=== PATIENT | male | born 1985 | race Caucasian/White ===

== ENCOUNTER 2022-03-08 16:10 | Emergency (ER) | payer OTHER, SELFPAY ==
[2022-03-08 16:35] VITALS: BP 128/84; PULSE 57; RESP 19; TEMP 36.2; O2SAT 100; BMI 28.0
[2022-03-08 18:04] LABS: Add Manual Diff / Slide Review NO; Basophils Absolute Auto 0 /uL (0-100); Eosinophils Absolute Auto 100 /uL (0-450); Eosinophils Percent Auto 1.9 % (2-4); Hematocrit 41.8 % (41-53); Hemoglobin 14.8 g/dL (13.5-17.5); Lymphocytes Absolute Auto 1500 /uL (1100-4500); Lymphocytes Percent Auto 31.2 % (25-40); Mean Corpuscular HGB Conc 35.3 % (30-36); Mean Corpuscular Hemoglobin 30.7 PG (26-34); Mean Corpuscular Volume 86.9 fL (80-100); Monocytes Absolute Auto 400 /uL (0-900); Neutrophils Absolute Auto 2800 /uL (1500-7000); Neutrophils Percent Auto 57.9 % (50-75); Platelet Count 205 X10^3/uL (150-400); Red Cell Distribution Width 13.7 % (11.6-14.8); White Blood Cell Count 4.8 X10^3/uL (4.5-11.0)
--- NOTE | 2022-03-08 18:17 | DI.CT.S_ITS ---
PROCEDURE: CT KIDNEY URETER BLADDER (KUB) INDICATIONS: left flank pain, dark urine, c/f nephrolithiasis TECHNIQUE: Axial sections were acquired from the lung bases to the pubic symphysis. Coronal and sagittal reformats were performed. For radiation dose reduction, the following was used: automated exposure control, adjustment of mA and/or kV according to patient size. COMPARISON: None. FINDINGS: Lower thorax: The lung bases are clear. Heart size normal. No hiatal hernia. Liver: Normal in size and attenuation. No contour deformity present. Biliary system: No calcified cholelithiasis or pericholecystic inflammation. No intra or extrahepatic bile duct dilatation. Pancreas: Unremarkable without mass or inflammation evident. Spleen: Normal in size and density. Adrenals: Normal morphology and density. Reproductive system: Unremarkable as visualized. Urinary system: Normal renal size and attenuation. No renal calculi, hydronephrosis, or solid mass present. Urinary bladder unremarkable. Gastrointestinal system: The bowel is unremarkable without evidence of bowel obstruction or inflammation. The stomach appears unremarkable. Appendix: No findings to suggest acute appendicitis. Peritoneal spaces: No mesenteric or retroperitoneal adenopathy. No free air. No free fluid. Vasculature: The IVC, aorta and iliac vasculature are unremarkable. Abdominal wall: Abdominal wall intact without evidence of ventral or inguinal hernias. Musculoskeletal: Normal bone mineralization. No acute fractures. IMPRESSION: 1. Normal noncontrast CT abdomen pelvis. No evidence of renal calculi, hydronephrosis or obstructive uropathy. Approved by: Cristobal Peñaloza M.D. on 03/08/2022 at 17:59
[2022-03-08 18:19] LABS: Alanine Aminotransferase 26 IU/L (<50); Albumin 4.8 g/dL (3.5-5.0); Albumin Globulin Ratio 1.5 (1.0-2.8); Alkaline Phosphatase 56 U/L (38-126); Aspartate Aminotransferase 37 IU/L (17-59); BUN Creatinine Ratio 19.4 (6-22); Bilirubin Total 0.7 mg/dL (0.2-1.3); Blood Urea Nitrogen 18 mg/dL (9-20); Calcium 9.8 mg/dL (8.4-10.2); Carbon Dioxide 33 mmol/L (22-32); Chloride 99 mmol/L (98-107); Estimated Glomerular Filt Rate > 60 mL/min (>60); Globulin 3.1 g/dL (1.7-4.1); Glucose 107 mg/dL (70-100); HEMOLYSIS 16 (0-50); Lipase 74 U/L (23-300); Potassium 4.3 mmol/L (3.4-5.1); Sodium 141 mmol/L (137-145); Total Protein 7.9 g/dL (6.3-8.2)
[2022-03-08 18:21] LABS: C-Reactive Protein Quant < 0.5 mg/dL (<1.0)
--- NOTE | 2022-03-08 18:31 | ED.ABDPAIN ---
HPI - Abdominal Pain <BRIAN Quinones - Last Filed: 03/08/22 20:45> General Chief Complaint: Abdominal Pain Stated Complaint: ABD and lower back pain Time Seen by Provider: 03/08/22 17:52 Source: patient Mode of arrival: Family Vehicle History of Present Illness HPI narrative: This is an otherwise healthy 36-year-old male who presents to the emergency department with 4 days of left-sided flank pain which he states has been worsening and has had occasional right-sided groin/flank pain. He denies any nausea, vomiting, fever, chills, changes to her stool, rectal pain, urinary changes other than his urine he states it is dark in the morning, denies any history of abdominal surgeries. States he is tried Tylenol and ibuprofen and has not had much relief. Denies any new sexual partners and is in a monogamous relationship without concern for STI. Related Data Allergies Allergy/AdvReac Type Severity Reaction Status Date / Time No Known Drug Allergies Allergy Verified 03/08/22 17:00 Review of Systems <BRIAN Quinones - Last Filed: 03/08/22 20:45> Review of Systems Narrative: Review of systems is negative for acute abnormalities unless otherwise noted in HPI Patient History <BRIAN Quinones - Last Filed: 03/08/22 20:45> Social History Smoking Status: Never smoker Smoking Status: Never smoker alcohol intake frequency: holidays/special occasions only Substance Use Type: does not use Exam <BRIAN Quinones - Last Filed: 03/08/22 20:45> Narrative Exam Narrative: Reviewed vitals signs and nursing notes. General: cooperative, comfortable, in no acute distress, well groomed, afebrile without tachycardia HEENT: symmetrical facial expressions, moist mucous membranes Cardiovascular: regular rate and rhythm, no peripheral edema, warm extremities Respiratory: normal effort, able to speak in complete sentences, without wheezing, stridor, or abnormal breath sounds. No retractions or tachypnea. GI: abdomen soft, nontender to palpation x4 quadrants, nondistended, without masses, rebound tenderness or exquisite tenderness with exam.no CVA tenderness bilaterally. Pain is not reproducible MSK: moves all extremities, neurovascularly intact, no weakness, normal tone, no pain with left leg lift or right leg lift Skin: brisk capillary refill, without pallor or erythema Neuro: normal speech and cognition, A&O x3, ambulatory, clear speech Psych: mental status is grossly normal, congruent mood, normal affect, pleasant and cooperative Initial Vital Signs Initial Vital Signs: Vital Signs Temperature 97.1 F L 03/08/22 16:35 Pulse Rate 57 L 03/08/22 16:35 Respiratory Rate 19 03/08/22 16:35 Blood Pressure 128/84 03/08/22 16:35 Pulse Oximetry 100 03/08/22 16:35 Oxygen Delivery Method 03/08/22 16:35 <Flaquita Marquez DO - Last Filed: 03/18/22 05:46> Initial Vital Signs Initial Vital Signs: Vital Signs Temperature 97.1 F L 03/08/22 16:35 Pulse Rate 57 L 03/08/22 16:35 Respiratory Rate 19 03/08/22 16:35 Blood Pressure 128/84 03/08/22 16:35 Pulse Oximetry 100 03/08/22 16:35 Oxygen Delivery Method 03/08/22 16:35 Course <BRIAN Quinones - Last Filed: 03/08/22 20:45> Orders Ordered: Discontinued Medications Acetaminophen (Acetaminophen 325 Mg Tablet) 975 mg PO NOW ONE Stop: 03/08/22 18:18 Last Admin: 03/08/22 18:44 Dose: 975 mg Documented By: RIKKI Hydromorphone HCl (Hydromorphone 0.5 Mg Inj) 0.5 mg IV NOW ONE Stop: 03/08/22 18:06 Last Admin: 03/08/22 18:38 Dose: Not Given Documented By: RIKKI Doxycycline Hyclate 100 mg/ (Sodium Chloride) 100 mls @ 100 mls/hr IV NOW ONE Stop: 03/08/22 18:08 Last Admin: 03/08/22 18:39 Dose: Not Given Documented By: RIKKI Levofloxacin (Levaquin) 750 mg in 150 mls @ 100 mls/hr IV NOW ONE Stop: 03/08/22 19:36 Last Admin: 03/08/22 18:39 Dose: Not Given Documented By: RIKKI Ketorolac Tromethamine (Ketorolac 30 Mg/Ml Vial) 15 mg IV NOW ONE Stop: 03/08/22 18:06 Last Admin: 03/08/22 18:39 Dose: Not Given Documented By: RIKKI Ketorolac Tromethamine (Ketorolac 30 Mg/Ml Vial) 15 mg IM NOW ONE Stop: 03/08/22 18:18 Last Admin: 03/08/22 18:45 Dose: 15 mg Documented By: RIKKI Vital Signs Vital signs: Vital Signs - 8 hr 03/08/22 16:35 Temperature 97.1 F L Pulse Rate 57 L Respiratory Rate 19 Blood Pressure 128/84 Pulse Oximetry 100 Oxygen Delivery Method Room Air <Flaquita Marquez, - Last Filed: 03/18/22 05:46> Orders Ordered: Discontinued Medications Acetaminophen (Acetaminophen 325 Mg Tablet) 975 mg PO NOW ONE Stop: 03/08/22 18:18 Last Admin: 03/08/22 18:44 Dose: 975 mg Documented By: RIKKI Hydromorphone HCl (Hydromorphone 0.5 Mg Inj) 0.5 mg IV NOW ONE Stop: 03/08/22 18:06 Last Admin: 03/08/22 18:38 Dose: Not Given Documented By: RIKKI Doxycycline Hyclate 100 mg/ (Sodium Chloride) 100 mls @ 100 mls/hr IV NOW ONE Stop: 03/08/22 18:08 Last Admin: 03/08/22 18:39 Dose: Not Given Documented By: RIKKI Levofloxacin (Levaquin) 750 mg in 150 mls @ 100 mls/hr IV NOW ONE Stop: 03/08/22 19:36 Last Admin: 03/08/22 18:39 Dose: Not Given Documented By: RIKKI Ketorolac Tromethamine (Ketorolac 30 Mg/Ml Vial) 15 mg IV NOW ONE Stop: 03/08/22 18:06 Last Admin: 03/08/22 18:39 Dose: Not Given Documented By: RIKKI Ketorolac Tromethamine (Ketorolac 30 Mg/Ml Vial) 15 mg IM NOW ONE Stop: 03/08/22 18:18 Last Admin: 03/08/22 18:45 Dose: 15 mg Documented By: RIKKI Vital Signs Vital signs: Vital Signs - 8 hr 03/08/22 16:35 Temperature 97.1 F L Pulse Rate 57 L Respiratory Rate 19 Blood Pressure 128/84 Pulse Oximetry 100 Oxygen Delivery Method Room Air MDM - Abdominal Pain <Yenni Rowan, [facility] - Last Filed: 03/08/22 20:45> Lab Data Result diagrams: 03/08/22 17:30 03/08/22 17:30 Labs: Lab Results 03/08/22 03/08/22 03/08/22 Range/Units 17:30 17:30 17:30 WBC 4.8 (4.5-11.0) X10^3/uL RBC 4.80 (4.5-5.9) X10^6/uL Hgb 14.8 (13.5-17.5) g/dL Hct 41.8 (41-53) % MCV 86.9 (80-100) fL MCH 30.7 (26-34) PG MCHC 35.3 (30-36) % RDW 13.7 (11.6-14.8) % Plt Count 205 (150-400) X10^3/uL Neut % (Auto) 57.9 (50-75) % Lymph % (Auto) 31.2 (25-40) % [place] % (Auto) 8.0 (3-14) % Eos % (Auto) 1.9 L (2-4) % Baso % (Auto) 1.0 (0-2) % Neut # (Auto) 2800 (9006-0650) /uL Lymph # (Auto) 1500 (5519-4744) /uL [place] # (Auto) 400 (0-900) /uL Eos # (Auto) 100 (0-450) /uL Baso # (Auto) 0 (0-100) /uL Sodium 141 (137-145) mmol/L Potassium 4.3 (3.4-5.1) mmol/L Chloride 99 (98-107) mmol/L Carbon Dioxide 33 H (22-32) mmol/L BUN 18 (9-20) mg/dL Creatinine 0.93 (0.66-1.25) mg/dL Estimated GFR > 60 (>60) mL/min BUN/Creatinine Ratio 19.4 (6-22) Glucose 107 H (70-100) mg/dL Lactate 1.0 (0.7-2.1) mmol/L Calcium 9.8 (8.4-10.2) mg/dL Total Bilirubin 0.7 (0.2-1.3) mg/dL AST 37 (17-59) IU/L ALT 26 (<50) IU/L Alkaline Phosphatase 56 (38-126) U/L C-Reactive Protein (<1.0) mg/dL Total Protein 7.9 (6.3-8.2) g/dL Albumin 4.8 (3.5-5.0) g/dL Globulin 3.1 (1.7-4.1) g/dL Albumin/Globulin Ratio 1.5 (1.0-2.8) Lipase 74 (23-300) U/L Procalcitonin (<0.5) ng/mL 03/08/22 Range/Units 17:30 WBC (4.5-11.0) X10^3/uL RBC (4.5-5.9) X10^6/uL Hgb (13.5-17.5) g/dL Hct (41-53) % MCV (80-100) fL MCH (26-34) PG MCHC (30-36) % RDW (11.6-14.8) % Plt Count (150-400) X10^3/uL Neut % (Auto) (50-75) % Lymph % (Auto) (25-40) % [place] % (Auto) (3-14) % Eos % (Auto) (2-4) % Baso % (Auto) (0-2) % Neut # (Auto) (2146-8654) /uL Lymph # (Auto) (3377-9144) /uL [place] # (Auto) (0-900) /uL Eos # (Auto) (0-450) /uL Baso # (Auto) (0-100) /uL Sodium (137-145) mmol/L Potassium (3.4-5.1) mmol/L Chloride (98-107) mmol/L Carbon Dioxide (22-32) mmol/L BUN (9-20) mg/dL Creatinine (0.66-1.25) mg/dL Estimated GFR (>60) mL/min BUN/Creatinine Ratio (6-22) Glucose (70-100) mg/dL Lactate (0.7-2.1) mmol/L Calcium (8.4-10.2) mg/dL Total Bilirubin (0.2-1.3) mg/dL AST (17-59) IU/L ALT (<50) IU/L Alkaline Phosphatase (38-126) U/L C-Reactive Protein < 0.5 (<1.0) mg/dL Total Protein (6.3-8.2) g/dL Albumin (3.5-5.0) g/dL Globulin (1.7-4.1) g/dL Albumin/Globulin Ratio (1.0-2.8) Lipase (23-300) U/L Procalcitonin < 0.03 (<0.5) ng/mL Point of care testing: Urine Dip Bedside Urine Glucose Negative Bedside Urine Bilirubin - Negative Bedside Urine Ketone - Negative Urine Specific [place] 1.020 Bedside Urine Occult Blood - Negative Bedside Urine pH 6.0 Bedside Urine Protein - Negative Bedside Urine Urobilinogen - Negative Bedside Urine Nitrite - Negative Bedside Urine Leukocytes - Negative Esterase Imaging Data CT scan - abdomen/pelvis: Radiologist's Impression: PROCEDURE:? CT KIDNEY URETER BLADDER (KUB) ? INDICATIONS:? left flank pain, dark urine, c/f nephrolithiasis ? TECHNIQUE:? Axial sections were acquired from the lung bases to the pubic symphysis.? Coronal and sagittal reformats were performed.? For radiation dose reduction, the following was used: ?automated exposure control, adjustment of mA and/or kV according to patient size.? ? COMPARISON:? None. ? FINDINGS: ? Lower thorax: The lung bases are clear.? Heart size normal.? No hiatal hernia. ? Liver:? Normal in size and attenuation. No contour deformity present. ? Biliary system:? No calcified cholelithiasis or pericholecystic inflammation.? No intra or extrahepatic bile duct dilatation. ? Pancreas:? Unremarkable without mass or inflammation evident. ? Spleen:? Normal in size and density. ? Adrenals:? Normal morphology and density. ? Reproductive system:? Unremarkable as visualized. ? Urinary system:? Normal renal size and attenuation. No renal calculi, hydronephrosis, or solid mass present.? Urinary bladder unremarkable. ? Gastrointestinal system:? The bowel is unremarkable without evidence of bowel obstruction or inflammation. The stomach appears unremarkable. ? Appendix:? No findings to suggest acute appendicitis. ? Peritoneal spaces:? No mesenteric or retroperitoneal adenopathy.? No free air.? No free fluid.? ? Vasculature:? The IVC, aorta and iliac vasculature are unremarkable. ? Abdominal wall:? Abdominal wall intact without evidence of ventral or inguinal hernias. ? Musculoskeletal:? Normal bone mineralization.? No acute fractures.? ? IMPRESSION: ? 1. Normal noncontrast CT abdomen pelvis.? No evidence of renal calculi, hydronephrosis or obstructive uropathy. ? ? ? Approved by: Cristobal Peñaloza M.D. on 03/08/2022 at 17:59? MDM Narrative Medical decision making narrative: This is a 36-year-old male presents to the emergency department with left-sided flank pain which he states started a couple days ago and he thinks it has been getting worse with concern for kidney stone. He is an active, physically fit gentleman, denies any fever, chills, nausea, vomiting, changes to his stool or his urination. Denies any history of abdominal surgery. His lab work overall is unremarkable, UA is negative for blood, white cells, nitrates, and bacteria. CT KUB is negative for renal calculi, hydronephrosis, obstructive uropathy or other abnormality. It is notable that patient does have a moderate stool burden. Discussed recent activity and differential includes abdominal muscle strain, costochondritis, constipation, and discussed symptoms to return, encourage patient to stay hydrated, take ibuprofen and Tylenol as needed for pain in 2 come back if he has any worsening. Encouraged him to use MiraLax for the next couple of days and see if this helps improve any of his symptoms. No peritoneal signs on abdominal exam. Patient remains p.o. tolerant. Serial abdominal exam without increase in abdominal pain. Given history and exam, low suspicion for acute abdominal process, such as acute cholecystitis, pancreatitis, perforated viscus, atypical appendicitis, colitis, diverticulitis or torsion. Extensive conversation about ER return precautions and need for close follow-up. Patient is appropriate and amenable to discharge home. Vital signs are stable on repeat examination is unremarkable. Patient has been informed of results. Patient has been given strict return to ER precautions for any new or worsening symptoms. Patient understands to follow up closely with outpatient providers as instructed. Patient understands plan and agrees to discharge home. All questions and concerns answered at this time. <Flaquita Marquez, DO - Last Filed: 03/18/22 05:46> Lab Data Labs: Lab Results 03/08/22 03/08/2203/08/22 Range/Units 17:30 17:30 17:30 WBC 4.8 (4.5-11.0) X10^3/uL RBC 4.80 (4.5-5.9) X10^6/uL Hgb 14.8 (13.5-17.5) g/dL Hct 41.8 (41-53) % MCV 86.9 (80-100) fL MCH 30.7 (26-34) PG MCHC 35.3 (30-36) % RDW 13.7 (11.6-14.8) % Plt Count 205 (150-400) X10^3/uL Neut % (Auto) 57.9 (50-75) % Lymph % (Auto) 31.2 (25-40) % [place] % (Auto) 8.0 (3-14) % Eos % (Auto) 1.9 L (2-4) % Baso % (Auto) 1.0 (0-2) % Neut # (Auto) 2800 (9932-1666) /uL Lymph # (Auto) 1500 (5493-3324) /uL [place] # (Auto) 400 (0-900) /uL Eos # (Auto) 100 (0-450) /uL Baso # (Auto) 0 (0-100) /uL Sodium 141 (137-145) mmol/L Potassium 4.3 (3.4-5.1) mmol/L Chloride 99 (98-107) mmol/L Carbon Dioxide 33 H (22-32) mmol/L BUN 18 (9-20) mg/dL Creatinine 0.93 (0.66-1.25) mg/dL Estimated GFR > 60 (>60) mL/min BUN/Creatinine Ratio 19.4 (6-22) Glucose 107 H (70-100) mg/dL Lactate 1.0 (0.7-2.1) mmol/L Calcium 9.8 (8.4-10.2) mg/dL Total Bilirubin 0.7 (0.2-1.3) mg/dL AST 37 (17-59) IU/L ALT 26 (<50) IU/L Alkaline Phosphatase 56 (38-126) U/L C-Reactive Protein (<1.0) mg/dL Total Protein 7.9 (6.3-8.2) g/dL Albumin 4.8 (3.5-5.0) g/dL Globulin 3.1 (1.7-4.1) g/dL Albumin/Globulin Ratio 1.5 (1.0-2.8) Lipase 74 (23-300) U/L Procalcitonin (<0.5) ng/mL 03/08/22 Range/Units 17:30 WBC (4.5-11.0) X10^3/uL RBC (4.5-5.9) X10^6/uL Hgb (13.5-17.5) g/dL Hct (41-53) % MCV (80-100) fL MCH (26-34) PG MCHC (30-36) % RDW (11.6-14.8) % Plt Count (150-400) X10^3/uL Neut % (Auto) (50-75) % Lymph % (Auto) (25-40) % [place] % (Auto) (3-14) % Eos % (Auto) (2-4) % Baso % (Auto) (0-2) % Neut # (Auto) (0088-0717) /uL Lymph # (Auto) (0639-6307) /uL [place] # (Auto) (0-900) /uL Eos # (Auto) (0-450) /uL Baso # (Auto) (0-100) /uL Sodium (137-145) mmol/L Potassium (3.4-5.1) mmol/L Chloride (98-107) mmol/L Carbon Dioxide (22-32) mmol/L BUN (9-20) mg/dL Creatinine (0.66-1.25) mg/dL Estimated GFR (>60) mL/min BUN/Creatinine Ratio (6-22) Glucose (70-100) mg/dL Lactate (0.7-2.1) mmol/L Calcium (8.4-10.2) mg/dL Total Bilirubin (0.2-1.3) mg/dL AST (17-59) IU/L ALT (<50) IU/L Alkaline Phosphatase (38-126) U/L C-Reactive Protein < 0.5 (<1.0) mg/dL Total Protein (6.3-8.2) g/dL Albumin (3.5-5.0) g/dL Globulin (1.7-4.1) g/dL Albumin/Globulin Ratio (1.0-2.8) Lipase (23-300) U/L Procalcitonin < 0.03 (<0.5) ng/mL Point of care testing: Urine Dip Bedside Urine Glucose Negative Bedside Urine Bilirubin - Negative Bedside Urine Ketone - Negative Urine Specific [place] 1.020 Bedside Urine Occult Blood - Negative Bedside Urine pH 6.0 Bedside Urine Protein - Negative Bedside Urine Urobilinogen - Negative Bedside Urine Nitrite - Negative Bedside Urine Leukocytes - Negative Esterase Discharge Plan Departure Patient Disposition: Home Clinical Impression: Acute flank pain Abdominal muscle strain Qualifiers: Encounter type: initial encounter Qualified Code(s): S39.011A - Strain of muscle, fascia and tendon of abdomen, initial encounter Instructions: Abdominal Muscle Strain Activity Restrictions/Additional Instructions: *You have been diagnosed with an unremarkable abdomen and pelvis CT without any evidence of kidney stone, inflammation, bowel obstruction or inflammation or problem with any abdominal organ. Your lab work is picture perfect without any abnormalities also, please stay hydrated, consider adding MiraLax to your daily routine for the next few days and see if this helps any discomfort. My presumption is that this is an abdominal muscle strain and that would cause similar symptoms. Please take ibuprofen with food and water every 8 hours as needed for your pain, you can take as well, come back to the emergency department if you develop fever, chills, worsening pain, nausea vomiting and follow-up with [facility] as needed prior to returning to duty if you do not feel well. I wish you the best. *What to do: *Please continue to take your regular medications as directed. [ ] New medication prescriptions sent to your pharmacy: [ ] [ ] New medication written as a paper prescription [ x] No new medications given *Please follow up with your primary care provider in 2-3 days, call for an appointment. Let them know you were seen in the Emergency Department and that we asked that you be seen for follow-up. We will electronically transmit a record of today's note if your PCP is in our system *If you do not have a primary care provider please contact [phone] to establish care with one of the [facility] primary care providers. *Return to Emergency Department if you should have any new, worsening, or concerning symptoms, such as [fever greater than 101F, chills, worsening pain, persistent vomiting or other bothersome symptoms]. Visit Report Forms: Patient Portal/API <Flaquita Marquez DO - Last Filed: 03/18/22 05:46> Cosign ED Attending Cosignature Attestation: I was immediately available in the department for consultation. Documentation has been reviewed.
[2022-03-08 18:35] LABS: Procalcitonin < 0.03 ng/mL (<0.5)
[2022-03-08] MEDS: ACETAMINOPHEN 325 MG TABLET 975 MG PO (18:44)
[2022-03-08] MEDS: KETOROLAC 30 MG/ML VIAL 15 MG IM (18:45)
== END 2022-03-08 19:40 | disposition home or self-care (01) ==
PROVIDERS: Emergency Medicine; Emergency Provider Nurse Practitioner Critical Care Medicine
DX: S39.011A Strain of muscle, fascia and tendon of abdomen, initial encounter (principal); M54.50 Low back pain, unspecified
CPT/HCPCS: 74176; 80053; 81003; 83605; 83690; 84145; 85025; 86140; 96372; 99283; 99284; J1885

== ENCOUNTER 2024-08-06 09:18 | Emergency (ER) | payer OTHER, SELFPAY ==
[2024-08-06 09:29] VITALS: BP 137/86; PULSE 50; RESP 4; TEMP 36.6; O2SAT 100; BMI 27.9
--- NOTE | 2024-08-06 11:50 | ED_ITS ---
HPI - Headache <Xena Swann PA-C - Last Filed: 08/06/24 22:26> General Chief Complaint: Headache Stated Complaint: headache, neck pain Time Seen by Provider: 08/06/24 11:22 Mode of arrival: Ambulatory History of Present Illness HPI Narrative: Mr. Lai Farris is a pleasant 39-year-old male, [employer], with no reported past medical history or prescription medication use who presents to the emergency department for posterior headache and neck pain x3 weeks. Patient states there was no inciting injury or trauma however he did travel on a plane 1 week prior. Describes constant pain on the back of his skull also goes down the back of the neck and up the school and sometimes around the back of the ears. He is tried [id number] pain medications with no improvement, sleeping on his back or stomach makes it worse, he is only able to sleep on his side. He gets temporary relief with taking an ice cold shower. He denies visual disturbance, dizziness, off balance, fevers, chills. Pain occasionally makes him nauseous. He has no history of headaches or migraines. No drug use. Related Data Previous Rx's Medication Instructions Recorded lidocaine 5 % topical patch 1 patch topical DAILY #15 ea 08/06/24 (Lidoderm) methocarbamol 500 mg tablet 500 mg PO TID PRN muscle pain #30 08/06/24 tabs naproxen 500 mg tablet 500 mg PO BID PRN pain #20 tabs 08/06/24 ondansetron 4 mg disintegrating 4 mg PO Q8H PRN nausea and 08/06/24 tablet vomiting #20 tabs Allergies Allergy/AdvReac Type Severity Reaction Status Date / Time No Known Drug Allergies Allergy Verified 08/06/24 09:29 Review of Systems <Xena Swann PA-C - Last Filed: 08/06/24 22:26> Review of Systems ROS Unobtainable: All systems reviewed & are unremarkable except as noted in HPI and below Patient History <Xena Swann PA-C - Last Filed: 08/06/24 22:26> Social History Smoking Status: Never smoker Smoking Status: Never smoker alcohol intake frequency: holidays/special occasions only Exam <Xena Swann PA-C - Last Filed: 08/06/24 22:26> Narrative Exam Narrative: GENERAL: 39 year old patient appears stated age. Well-developed patient, in no acute distress. HEAD: Atraumatic. Normocephalic. EYES: PERRL. Extraocular motions intact. No scleral icterus. No injection or drainage. ENT: Normal TMs bilaterally. Nose without bleeding, purulent drainage. Throat without erythema, tonsillar hypertrophy or exudate. Airway patent. NECK: Trachea midline. Cervical ROM intact. No midline cervical tenderness. Full range of motion of the cervical spine with no meningismus. CARDIOVASCULAR: Regular rate and rhythm. RESPIRATORY: ?Nonlabored respirations. ?Speaking in clear, full sentences. ?Clear to auscultation. Breath sounds equal bilaterally. No wheezes, rales, or rhonchi. ? GASTROINTESTINAL: Abdomen soft, non-tender, nondistended. EXTREMITIES: No edema or joint tenderness. BACK: Nontender without deformity or crepitance. No flank tenderness. NEURO: AOx3. ?Clear speech. ?Moves all 4 extremities appropriately. Bilateral upper and lower extremity strength intact. Normal oloolj-newa-dtrkny, rapid alternating movements, heel-leyva. Steady gait. SKIN: No rash or erythema of visible areas Initial Vital Signs Initial Vital Signs: Vital Signs Temperature 97.8 F 08/06/24 09:29 Pulse Rate 50 L 08/06/24 09:29 Respiratory Rate 4 L 08/06/24 09:29 Blood Pressure 137/86 08/06/24 09:29 Pulse Oximetry 100 08/06/24 09:29 Oxygen Delivery Method Room Air 08/06/24 09:29 <Flaquita Marquez DO - Last Filed: 08/17/24 08:35> Initial Vital Signs Initial Vital Signs: Vital Signs Temperature 97.8 F 08/06/24 09:29 Pulse Rate 50 L 08/06/24 09:29 Respiratory Rate 4 L 08/06/24 09:29 Blood Pressure 137/86 08/06/24 09:29 Pulse Oximetry 100 08/06/24 09:29 Oxygen Delivery Method Room Air 08/06/24 09:29 Course <Xena Swann PA-C - Last Filed: 08/06/24 22:26> Orders Ordered: Discontinued Medications Acetaminophen (Acetaminophen 325 Mg Tablet) 975 mg PO NOW ONE Stop: 08/06/24 12:00 Last Admin: 08/06/24 13:23 Dose: 975 mg Documented By: ANDERS Dexamethasone (Dexamethasone 10 Mg/Ml Vial) 10 mg IV NOW ONE Stop: 08/06/24 12:00 Last Admin: 08/06/24 13:25 Dose: 10 mg Documented By: ANDERS Diphenhydramine HCl (Diphenhydramine 50 Mg/Ml Vial) 25 mg IV NOW ONE Stop: 08/06/24 12:00 Last Admin: 08/06/24 13:24 Dose: 25 mg Documented By: ANDERS Sodium Chloride (Normal Saline 0.9%) 1,000 mls @ 1,000 mls/hr IV BOLUS ONE Stop: 08/06/24 12:58 Last Infusion: 08/06/24 14:24 Dose: Infused Documented By: Admin: 08/06/24 13:25 Dose: 1,000 mls/hr Documented By: ANDERS Ketorolac Tromethamine (Ketorolac 30 Mg/Ml Vial) 15 mg IV NOW ONE Stop: 08/06/24 12:00 Last Admin: 08/06/24 13:24 Dose: 15 mg Documented By: ANDERS Metoclopramide HCl (Metoclopramide 10 Mg/2 Ml Inj) 10 mg IV NOW ONE Stop: 08/06/24 12:00 Last Admin: 08/06/24 13:24 Dose: 10 mg Documented By: ANDERS Vital Signs Vital signs: Vital Signs - 8 hr 08/06/24 09:29 08/06/24 13:49 Temperature 97.8 F Pulse Rate 50 L 50 L Respiratory Rate 4 L 16 Blood Pressure 137/86 117/70 Pulse Oximetry 100 100 Oxygen Delivery Method Room Air Room Air <Flaquita Marquez DO - Last Filed: 08/17/24 08:35> Orders Ordered: Discontinued Medications Acetaminophen (Acetaminophen 325 Mg Tablet) 975 mg PO NOW ONE Stop: 08/06/24 12:00 Last Admin: 08/06/24 13:23 Dose: 975 mg Documented By: ANDERS Dexamethasone (Dexamethasone 10 Mg/Ml Vial) 10 mg IV NOW ONE Stop: 08/06/24 12:00 Last Admin: 08/06/24 13:25 Dose: 10 mg Documented By: ANDERS Diphenhydramine HCl (Diphenhydramine 50 Mg/Ml Vial) 25 mg IV NOW ONE Stop: 08/06/24 12:00 Last Admin: 08/06/24 13:24 Dose: 25 mg Documented By: ANDERS Sodium Chloride (Normal Saline 0.9%) 1,000 mls @ 1,000 mls/hr IV BOLUS ONE Stop: 08/06/24 12:58 Last Infusion: 08/06/24 14:24 Dose: Infused Documented By: Admin: 08/06/24 13:25 Dose: 1,000 mls/hr Documented By: ANDERS Ketorolac Tromethamine (Ketorolac 30 Mg/Ml Vial) 15 mg IV NOW ONE Stop: 08/06/24 12:00 Last Admin: 08/06/24 13:24 Dose: 15 mg Documented By: ANDERS Metoclopramide HCl (Metoclopramide 10 Mg/2 Ml Inj) 10 mg IV NOW ONE Stop: 08/06/24 12:00 Last Admin: 08/06/24 13:24 Dose: 10 mg Documented By: ANDERS Vital Signs Vital signs: Vital Signs - 8 hr 08/06/24 09:29 08/06/24 13:49 Temperature 97.8 F Pulse Rate 50 L 50 L Respiratory Rate 4 L 16 Blood Pressure 137/86 117/70 Pulse Oximetry 100 100 Oxygen Delivery Method Room Air Room Air MDM - Headache <Xena Swann PA-C - Last Filed: 08/06/24 22:26> Medical Records Attestation: I reviewed the patient's medical records. Imaging Data CT scan - head: Radiologist's Impression: PROCEDURE: CT HEAD/BRAIN WO CON INDICATIONS: 3 weeks posterior NI neck pain no trauma; no hx NI TECHNIQUE: Noncontrast 4.5 mm thick angled axial sections acquired from the foramen magnum to the vertex, with coronal and sagittal reformats. For radiation dose reduction, the following was used: automated exposure control, adjustment of mA and/or kV according to patient size. COMPARISON: None. FINDINGS: Image quality: Diagnostic. CSF spaces: Basal cisterns are patent. No extra-axial fluid collections. Ventricles are normal in size and shape. Brain: No midline shift. No intracranial masses or hemorrhage. Nicholson-white matter interface is normal. Skull and face: Calvarium and visualized facial bones are intact, without suspicious lesions. Sinuses: Visualized sinuses and mastoids are clear. IMPRESSION: No acute intracranial pathology. CT - cervical spine: Radiologist's Impression: PROCEDURE: CT CERVICAL SPINE WO CON INDICATIONS: 3 weeks posterior NI neck pain no trauma; no hx NI TECHNIQUE: Noncontrast 3 mm thick sections acquired from the skull base to the T4 level. Sagittal and coronal reformats were then constructed. For radiation dose reduction, the following was used: automated exposure control, adjustment of mA and/or kV according to patient size. COMPARISON: None. FINDINGS: Image quality: Excellent. Bones: No fractures or dislocations. Visualized superior ribs are intact. Soft tissues: Prevertebral soft tissues are normal in thickness. No paravertebral hematomas. No apical pneumothoraces. IMPRESSION: No displaced fracture or traumatic subluxation. MDM Narrative Medical decision making narrative: 39-year-old male, [employer], with no reported past medical history or prescription medication use who presents to the emergency department for posterior headache and neck pain x3 weeks. Differential diagnosis includes but is not limited to cervicogenic migraine, cervical disc disease, muscle spasm, migraine, etc. On exam patient is in no acute distress, nontoxic appearing, incorrect vital signs documented in triage however normal heart rate and respiratory rate on exam, normal neurologic and cerebellar exam he has no history of migraine headaches, no trauma. We will obtain baseline head and neck CT, treat with migraine cocktail including fluids, Reglan, Toradol, Benadryl, Tylenol. Patient's pain improved after ED treatment however did not completely resolve. He has not interested in any additional pain medication at this time. Printed a nd discussed his CT imaging with him. Head CT reveals no acute intracranial pathology. CT cervical spine reveals no displaced fracture or traumatic subluxation. While patient's symptoms are most consistent with a cervicogenic type headache, we discussed the importance of prompt follow up with his primary doctor and possible referral to Neurology for further evaluation. We will trial naproxen, Robaxin, Zofran, lidocaine patches, heat therapy and the back of the neck for home. Discussed risks and muscle relaxers. Discussed strict ED return precautions with the patient. Verbalized understanding all information is agreeable to this plan. He is stable for discharge home. Discharge Plan Departure Patient Disposition: Home Clinical Impression: Headache, cervicogenic Instructions: DI for Headache, DI for Neck Pain Activity Restrictions/Additional Instructions: Dear Mr. Farris, Today, we completed a work up for posterior headache and neck pain. Sometimes, we do not always find the cause for your symptoms in one ER visit. The findings on your exam today and on your imaging is reassuring. At this time, it is not 100% certain what is causing your symptoms, but we feel you can be discharged from the emergency department. It is possible this may worsen or you may get better. Please, if you get worse or your symptoms change, return to the emergency department. Otherwise, please follow up with your primary care doctor in 1-3 days. Please use the prescribed naproxen (pain medicine), Robaxin (muscle relaxer), Zofran (nausea medicine), lidocaine patches, topical numbing) as needed for your headache/neck pain. Please use warm compress or heating pad on the back of your neck to help loosen muscles. You may take Tylenol with these medications as well. Please return to the emergency department if you develop any new or worsening symptoms. I would like for you to follow up with your primary care doctor as you may benefit from further evaluation by a neurologist. Robaxin/methocarbamol as a muscle relaxer. This medication may make you drowsy so please do not take it while driving a car, operating heavy machinery or drinking alcohol . Please follow up with your primary care doctor within the next 2-3 days for ER follow-up. (If you do not have a PCP you can call [phone]. ?to schedule an appointment with an [facility] Primary Care Provider) IF YOU DEVELOP ANY NEW OR WORSENING SYMPTOMS, RETURN TO THE ER! Please read the attached instructions, they highlight more specific treatments and interventions for you at home. Thank you for letting me participate in your care, Xena Swann PA-C Prescriptions: New naproxen 500 mg tablet 500 mg PO BID PRN (Reason: pain) Qty: 20 0RF methocarbamol 500 mg tablet 500 mg PO TID PRN (Reason: muscle pain) Qty: 30 0RF lidocaine [Lidoderm] 5 % adhesive patch,medicated 1 patch topical DAILY Qty: 15 0RF Rx Instructions: leave on most painful area for up to 12 hrs ondansetron 4 mg tablet,disintegrating 4 mg PO Q8H PRN (Reason: nausea and vomiting) Qty: 20 0RF Stand Alone Forms: Patient Portal/API/Survey ED Sign-out <Flaquita Marquez, DO - Last Filed: 08/17/24 08:35> Cosign ED Attending Cosignature Attestation: I was immediately available in the department for consultation.
--- NOTE | 2024-08-06 12:00 | DI.CT.S_ITS ---
PROCEDURE: CT HEAD/BRAIN WO CON INDICATIONS: 3 weeks posterior NI neck pain no trauma; no hx NI TECHNIQUE: Noncontrast 4.5 mm thick angled axial sections acquired from the foramen magnum to the vertex, with coronal and sagittal reformats. For radiation dose reduction, the following was used: automated exposure control, adjustment of mA and/or kV according to patient size. COMPARISON: None. FINDINGS: Image quality: Diagnostic. CSF spaces: Basal cisterns are patent. No extra-axial fluid collections. Ventricles are normal in size and shape. Brain: No midline shift. No intracranial masses or hemorrhage. Nicholson-white matter interface is normal. Skull and face: Calvarium and visualized facial bones are intact, without suspicious lesions. Sinuses: Visualized sinuses and mastoids are clear. IMPRESSION: No acute intracranial pathology. Dictated by: Lai Macedo M.D. on 08/06/2024 at 12:18 Approved by: Lai Macedo M.D. on 08/06/2024 at 12:18
--- NOTE | 2024-08-06 12:00 | DI.CT.S_ITS ---
PROCEDURE: CT CERVICAL SPINE WO CON INDICATIONS: 3 weeks posterior NI neck pain no trauma; no hx NI TECHNIQUE: Noncontrast 3 mm thick sections acquired from the skull base to the T4 level. Sagittal and coronal reformats were then constructed. For radiation dose reduction, the following was used: automated exposure control, adjustment of mA and/or kV according to patient size. COMPARISON: None. FINDINGS: Image quality: Excellent. Bones: No fractures or dislocations. Visualized superior ribs are intact. Soft tissues: Prevertebral soft tissues are normal in thickness. No paravertebral hematomas. No apical pneumothoraces. IMPRESSION: No displaced fracture or traumatic subluxation. Dictated by: Lai Macedo M.D. on 08/06/2024 at 12:19 Approved by: Lai Macedo M.D. on 08/06/2024 at 12:19
[2024-08-06] MEDS: ACETAMINOPHEN 325 MG TABLET 975 MG PO (13:23)
[2024-08-06] MEDS: METOCLOPRAMIDE 10 MG/2 ML INJ IV (13:24)
[2024-08-06] MEDS: diphenhydrAMINE 50 MG/ML VIAL 25 MG IV (13:24)
[2024-08-06] MEDS: KETOROLAC 30 MG/ML VIAL 15 MG IV (13:24)
[2024-08-06] MEDS: SODIUM CHLORIDE 0.9% 1,000 ML 1000 ML IV (13:25)
[2024-08-06] MEDS: DEXAMETHASONE 10 MG/ML VIAL IV (13:25)
[2024-08-06 13:49] VITALS: BP 117/70; PULSE 50; RESP 16; O2SAT 100
== END 2024-08-06 14:53 | disposition home or self-care (01) ==
PROVIDERS: Emergency Provider Physician Assistant
DX: G44.86 Cervicogenic headache (principal); M54.2 Cervicalgia
CPT/HCPCS: 70450; 72125; 96361; 96374; 96375; 99284; J1100; J1200; J1885; J2765